=== PATIENT | female | born 2005 | race Asian ===

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

== ENCOUNTER 2025-02-17 19:51 | Emergency (ER) | payer MEDICARE, OTHER ==
[~2025-02-17 19:51] MED LIST: BENZ0.5T43 PO; LORA-258 PO
== END 2025-02-17 22:14 | disposition left against medical advice (07) ==
LOC: ER 19:57
DX: R07.9 Chest pain, unspecified (principal); Z53.21 Procedure and treatment not carried out due to patient leaving prior to being seen by health care provider